=== PATIENT | female | born 1940 | race Caucasian/White ===

== ENCOUNTER 2019-02-08 10:04 | Outpatient (CLI) | payer OTHER | END 2019-02-08 10:09 | disposition home or self-care (01) | LOC: SONOGRAMA 10:04 | DX: E04.1 Nontoxic single thyroid nodule (principal) ==

== ENCOUNTER 2022-01-04 09:19 | Outpatient (CLI) | payer OTHER | END 2022-01-04 09:23 | disposition home or self-care (01) | LOC: SONOGRAMA 09:19 | PROVIDERS: ATTEND Pathology Anatomic Pathology & Clinical Pathology | DX: E04.2 Nontoxic multinodular goiter (principal) ==